=== PATIENT | female | born 1945 | race Caucasian/White ===

== ENCOUNTER 2022-04-29 08:23 | Emergency (ER) | payer MEDICARE, SELFPAY ==
--- NOTE | 2022-04-29 08:25 | ED.SKABFB ---
HPI - Skin/Abscess/Foreign Bdy General Chief complaint: Skin/Abscess/Foreign Body Stated complaint: Boil under breast/ skin problem Time Seen by Provider: 04/29/22 08:26 Source: patient and RN notes reviewed History of Present Illness HPI narrative: Patient is a 77-year-old female who presents to the Urgent Care with complaints of abscesses under the breast and to the abdomen. Patient states that she has had intermittent scant issues since her shingles vaccine last October. Patient states that the area under the left breast started Thursday. Denies any fevers, nausea, vomiting, drainage. Patient has been covering it with clear and bandages and cleansing with Dial soap. Patient has not seen a doctor for approximately 3 years and has been doing tele visits to get her medications refilled. No other acute complaints. No acute distress noted. Patient aware of the plan of care. Some parts of this dictation were generated by voice recognition software and may contain typographical and/or grammatical inaccuracies. Related Data Home Medications Medication Instructions Recorded Confirmed [id number] 40 1 cap PO .qd 01/05/20 04/12/21 mg-25 mg-10 mg-10 mg capsule (Bilberry Extract) canagliflozin 100 mg tablet 100 mg PO DAILY 01/05/20 04/12/21 (Invokana) estradiol 0.05 mg/24 hr semiweekly 1 patch transdermal 2XW 01/05/20 04/12/21 transdermal patch (Vivelle-Dot) multivitamin (Multiple Vitamins 1 tablet PO DAILY 01/05/20 04/12/21 tablet) Allergies Allergy/AdvReac Type Severity Reaction Status Date / Time Cephalosporins Allergy Severe Diarrhea Verified 04/29/22 08:43 Review of Systems Review of Systems: CONSTITUTIONAL: Denies fever, chills, or sweats. EYES: Denies visual changes, redness, or discharge. ENT: Denies rhinorrhea, congestion, sore throat, or otalgia. CARDIOVASCULAR: Denies chest pain, palpitations, or edema. RESPIRATORY: Denies cough or dyspnea. GASTROINTESTINAL: Denies abdominal pain, nausea, vomiting, or diarrhea. GENITOURINARY: Denies dysuria or hematuria. SKIN: Reports an abscess in the left breast MUSCULOSKELETAL: Denies back pain, joint pain, or myalgia. NEUROLOGIC: Denies headache, numbness, or weakness. All other systems reviewed are negative, except as documented in HPI. [facility] Family History Family History Father Patient's father is Other Cerebrovascular accident Family history of arthritis Social History Social History Smoking status: Never smoker Second hand tobacco smoke exposure: No Alcohol intake: never Comments At the time of my signature, I reviewed and agree with the nursing past medical, surgical, social, and family history. There is no relevant family history pertinent to the patient complaint. Exam Narrative: GENERAL: This is a well-nourished, well-developed patient, in no apparent distress. HEAD: normocephalic, atraumatic. EYES: PERRL. Sclera clear/white. Vision is grossly intact. EARS: External ears normal NOSE: External nose normal with no obvious nasal discharge, nares without redness, no rhinorrhea. THROAT: Mucous membranes moist NECK: Neck supple SKIN: 2 x 2cm Tender, firm firm erythemic abscess without draining under the left breast/abdomen with mild surrounding erythema.warm, intact with no suspicious lesions or rash, good texture and turgor. NEURO: awake, alert, and oriented to person, place and time. There were no obvious focal neurologic abnormalities. EXTREMITIES: No clubbing, cyanosis, or edema. Course Course Level of Care: Express Care Visit Vital Signs Vital signs: Vital Signs Temperature 97.2 F L 04/29/22 08:36 Pulse Rate 102 H 04/29/22 08:36 Respiratory Rate 16 04/29/22 08:36 Blood Pressure 135/77 04/29/22 08:36 Pulse Oximetry 98 04/29/22 08:36 Oxygen Delivery Room Air 04/29
[2022-04-29 08:36] VITALS: BP 135/77; PULSE 102; RESP 16; TEMP 36.2; O2SAT 98
== END 2022-04-29 08:55 | disposition home or self-care (01) ==
PROVIDERS: Emergency Provider Nurse Practitioner Family; PCP Internal Medicine
DX: L02.211 Cutaneous abscess of abdominal wall (principal)
CPT/HCPCS: 99213; G0463